=== PATIENT | male | born 1990 | race Caucasian/White ===

== ENCOUNTER → 2020-11-29 | Outpatient (CLI) | payer OTHER ==
[2020-11-30 09:13] LABS: VITAMIN D, 25-HYDROXY 10.7 ng/mL (30.0-100.0)
[2020-11-30 12:14] LABS: RHEUMATOID ARTHRITIS FACTOR <10.0 IU/mL (0.0-13.9)
== END ==
LOC: LAB 09:27
PROVIDERS: Nurse Practitioner Family
DX: M25.50 Pain in unspecified joint (principal); R53.83 Other fatigue; M79.10 Myalgia, unspecified site
CPT/HCPCS: 36415; 84439; 84443; 85652; 86140; 86200; 86431